=== PATIENT | female | born 1975 | race Caucasian/White ===

== ENCOUNTER 2023-03-09 14:37 | Emergency (ER) | payer OTHER ==
[~2023-03-09] VITALS: Ht 160 cm; Wt 74.8 kg
[2023-03-09 15:40] LABS: INFLUENZA B NAA NEGATIVE (NEGATIVE); RESPIRATORY SYNCYTIAL VIR NAA NEGATIVE (NEGATIVE)
[2023-03-09 17:30] VITALS: BP 116/80
== END 2023-03-09 17:28 | disposition home or self-care (01) ==
LOC: ED 14:37
PROVIDERS: Emergency Medicine
DX: J10.1 Influenza due to other identified influenza virus with other respiratory manifestations (principal); Z11.52 Encounter for screening for COVID-19
CPT/HCPCS: 71046; 87502; 99283-25; C9803; U0002